=== PATIENT | male | born 1970 | race Hispanic/Latino ===

== ENCOUNTER 2024-05-02 11:45 | Emergency (ER) | payer SELFPAY ==
[~2024-05-02] VITALS: Ht 167.6 cm; Wt 99.8 kg
[2024-05-02] MEDS: ketOROlac 60 MG VIAL (30MG/ML) IM ONE (13:41)
[2024-05-02] MEDS ORDERED: IBUP-2077 PO (15:01)
[2024-05-02 15:18] VITALS: BP 151/62; PULSE 71; RESP 18; TEMP 98.2; O2SAT 97
== END 2024-05-02 15:20 | disposition home or self-care (01) ==
LOC: EDH 11:45
DX: Z88.0 Allergy status to penicillin (principal); M17.12 Unilateral primary osteoarthritis, left knee; Z98.890 Other specified postprocedural states
CPT/HCPCS: 99284; 84550; 36415; 73562; 96372; J1885